=== PATIENT | male | born 1945 | race Caucasian/White ===

== ENCOUNTER 2019-06-15 15:07 | Inpatient (IN) | payer MEDICARE, OTHER ==
[~2019-06-15] VITALS: Ht 188 cm; Wt 102.1 kg
--- NOTE | 2019-06-15 16:28 | Diagnostic Imaging Report ---
EXAMINATION: CXR 1 [facility] INDICATION: ^AMS COMPARISON: None FINDINGS: PA and lateral views TUBES and LINES: None. LUNGS: Low lung volumes. Mild subsegmental atelectasis in both lung bases. No lobar consolidations. PLEURA: No pleural effusion or pneumothorax. HEART AND MEDIASTINUM: The cardiomediastinal silhouette is unremarkable. BONES AND SOFT TISSUES: No acute osseous lesion. Soft tissues are unremarkable. UPPER ABDOMEN: No free air under the diaphragm. IMPRESSION: Bibasilar atelectasis. Signed by: Dr. Rozina Chauhan M.D. on 06/15/2019 4:24 PM
[2019-06-15] MEDS ORDERED: SODIUM CHLORIDE 0.9% 1000ML 1,000 ML IV STA (16:57)
[2019-06-15] MEDS ORDERED: LACTATED RINGER'S 1,000 ML IV SCH (16:57)
[2019-06-15] MEDS ORDERED: ONDANSETRON HCL INJ 2MG/ML 2ML 2 MG/ML VIAL IV PRN (17:00)
[2019-06-15] MEDS ORDERED: INSULIN REGULAR, HUMAN 100 UNIT/1 ML 3ML VIAL IV ONE (17:00)
[2019-06-15] MEDS ORDERED: DEXTROSE 50% SYRINGE 50 ML IV PRN (17:00)
[2019-06-15] MEDS ORDERED: DIPHENHYDRAMINE HCL INJ 50 MG/ML VIAL IV PRN (17:00)
--- NOTE | 2019-06-15 17:00 | NUR ---
after being in the ER for 2 hours pt started coughing and when asked when coughing had started family stated 2 days ago, dr randhawa notifed and pt placed on isolation.
--- NOTE | 2019-06-15 17:07 | Diagnostic Imaging Report ---
History:Fall Comparison studies:None Technique: Axial images were obtained from the skull base to the vertex. Coronal and sagittal images reconstructed from the axial data. Intravenous contrast: None Dose modulation, iterative reconstruction, and/or weight based adjustment of the mA/kV was utilized to reduce the radiation dose to as low as reasonably achievable. Findings: Limited study due to motion artifact Scalp/skull: No abnormalities. Extra-axial spaces: No masses. No fluid collections. Brain sulci: Moderately prominent. Ventricles: Moderately compensatory dilatation. No hydrocephalus. Parenchyma: Scattered hypodensities in the supratentorial white matter are small vessel ischemic changes. No masses, hemorrhage, acute or chronic cortical vascular insults. Sellar/suprasellar region: No abnormalities. Craniocervical junction: Patent foramen magnum. No Chiari one malformation. Incidental findings: Atherosclerotic calcifications in the carotid siphons and vertebral arteries . Impression: Limited study due to motion artifact. No significant acute abnormalities. Chronic findings: 1. Moderate generalized volume loss. 2. Mild supratentorial white matter small vessel ischemic changes. Signed by: DR Kit Dempsey M.D. on 06/15/2019 5:04 PM
[2019-06-15] MEDS ORDERED: CEFTRIAXONE SOD 1 GM VIAL ONE (17:27)
[2019-06-15] MEDS ORDERED: SODIUM CHLORIDE 0.9% 1000ML 1,000 ML ONE ×2 (17:27→18:56)
[2019-06-15] MEDS: FAMOTIDINE 20 MG/2 ML VIAL IV SCH (17:36)
--- OUTSIDE RECORDS SUMMARY | 2019-06-15 17:36 | XMS REPORT ---
Author Author [facility] Address Unknown Phone Unavailable Care Team Providers Care [employer] Name Role Phone Conner PERRIN Unavailable Unavailable Problems This patient has no known problems. Allergies, Adverse Reactions, Alerts This patient has no known allergies or adverse reactions. Medications This patient has no known medications. Results Test Description Test Time Test Comments Text Results Atomic Results Result Comments CT BRAIN WO-HOPD 2019-06-15 16:56:00 [place] [address] Patient Name: FABIÁN ANTHONY MR #: [id number] : 1945 Age/Sex: 74/M Req #: [id number] Adm Physician: Ordered by: JOSE RAMON PERRIN MD Report #: [id number] Location: [facility], [facility] Room/Bed: Procedure: [id number] HOPD/CT BRAIN WO-HOPD Exam Date: 06/15/19 Exam Time: 1622 REPORT STATUS: Signed History:Fall Comparison studies:None Technique: Axial images were obtained from the skull base to the vertex. Coronal and sagittal images reconstructed from the axial data. Intravenous contrast: None Dose modulation, iterative reconstruction, and/or weight based adjustment of the mA/kV was utilized to reduce the radiation dose to as low as reasonably achievable. Findings: Limited study due to motion artifact Scalp/skull: No abnormalities. Extra-axial spaces: No masses. No fluid collections. Brain sulci: Moderately prominent. Ventricles: Moderately compensatory dilatation. No hydrocephalus. Parenchyma: Scattered hypodensities in the supratentorial white matter are small vessel ischemic changes. No masses, hemorrhage, acute or chronic cortical vascular insults. Sellar/suprasellar region: No abnormalities. Craniocervical junction: Patent foramen magnum. No Chiari one malformation. Incidental findings: Atherosclerotic calcifications in the carotid siphons and vertebral arteries . Impression: Limited study due to motion artifact. No significant acute abnormalities. Chronic findings: 1. Moderate generalized volume loss. 2. Mild supratentorial white matter small vessel ischemic changes. Signed by: DR Kit Dempsey M.D. on 06/15/2019 5:04 PM Dictated By: KIT CONTRERAS MD 03 Transcribed By: RENE on 06/15/191703 COPY TO: JOSE RAMON PERRIN MD CXR 1 [facility] 2019-06-15 16:24:00 [place] [address] Patient Name: FABIÁN ANTHONY MR #: [id number] : 1945 Age/Sex: 74/M Req #: [id number] Adm Physician: Ordered by: JOSE RAMON PERRIN MD Report #: [id number] Location: [facility], [facility] Room/Bed: Procedure: [id number] [facility] Ex[facility] Date: 06/15/19 Exam Time: 1622 REPORT STATUS: Signed EXAMINATION: CXR 1 [facility] INDICATION: AMS COMPARISON: None FINDINGS: PA and lateral views TUBES and LINES: None. LUNGS: Low lung volumes. Mild subsegmental atelectasis in both lung bases. No lobar consolidations. PLEURA: No pleural effusion or pneumothorax. HEART AND MEDIASTINUM: The cardiomediastinal silhouette is unremarkable. BONES AND SOFT TISSUES: No acute osseous lesion. Soft tissues are unremarkable. UPPER ABDOMEN: No free air under the diaphragm. IMPRESSION: Bibasilar atelectasis. Signed by: Dr. Edward Nunez M.D. on 06/15/2019 4:24 PM Dictated By: EDWARD NUNEZ MD Transcribed By: RENE on 06/15/197 COPY TO: JOSE RAMON PERRIN MD
[2019-06-15] MEDS: CEFTRIAXONE SOD 1 GM/NS 50 ML 50 ML IV SCH (17:37)
--- NOTE | 2019-06-15 18:32 | NUR ---
[facility] notified of need for transfer eta 45-1 hour
[2019-06-15] MEDS ORDERED: ACETAMINOPHEN 325 MG TAB ONE (18:54)
[2019-06-15] MEDS: ACETAMINOPHEN 325 MG TAB PO PRN (19:00)
[2019-06-15] MEDS ORDERED: SODIUM CHLORIDE 0.9% 1000ML 1,000 ML IV ONE (19:15)
[2019-06-15 20:00] VITALS: BP 138/64
[2019-06-15] MEDS ORDERED: AZITHROMYCIN 250MG/NS 100 ML 100 ML IV SCH ×2 (20:30→21:00)
[2019-06-15 20:45] LABS: BASOPHILS # (AUTO) 0.2 (0.0-0.1); BASOPHILS % 0.5 % (0.0-1.0); EOSINOPHILS # (AUTO) 0.3 (0.0-0.4); HEMATOCRIT 37.8 % (38.2-49.6); HEMOGLOBIN 12.5 g/dL (14.0-18.0); LYMPHOCYTES # (AUTO) 1.1 (1.0-3.2); LYMPHOCYTES % 3.2 % (18.0-39.1); MEAN CORPUSCULAR HEMOGLOBIN 28.3 pg (28-32); MEAN CORPUSCULAR HGB CONC 33.1 g/dL (31-35); MEAN CORPUSCULAR VOLUME 85.7 fL (81-99); MONOCYTES # (AUTO) 0.8 (0.2-0.8); MONOCYTES % 2.5 % (4.4-11.3); NEUTROPHILS # (AUTO) 28.7 (2.1-6.9); NEUTROPHILS % 87.1 % (38.7-80.0); PLATELET COUNT 228 x10e3/uL (140-360); RED BLOOD COUNT 4.41 x10e6/uL (4.3-5.7); RED CELL DISTRIBUTION WIDTH 13.7 % (11.7-14.4)
--- NOTE | 2019-06-15 20:51 | Consultation ---
DATE OF CONSULTATION: Pulmonary Consultation REASON FOR CONSULT: Cough. HISTORY OF PRESENT ILLNESS: Mr. Souza is a 74-year-old male, regular patient of Dr. Santiago, presented to the [facility] ER with complaints of feeling very weak for several days. He refused to come to the hospital because of the fear of COVID-19. He fell couple of times at home as well. Family checked on him and found on the floor, so they brought him in. He is denying any complaints of chest pain. He feels weak. He denies any nausea, vomiting, or diarrhea. He had bruises and abrasions as well. REVIEW OF SYSTEMS: GENERAL: Denies any fever or chills. HEAD: Denies any head trauma. ENT: Denies any earache. CVS: Denies any chest pain. RESPIRATORY: Denies any shortness of breath. The rest of the review of systems are negative except as in HPI. PAST MEDICAL HISTORY: Diabetes and hypertension. FAMILY AND SOCIAL HISTORY: He does not smoke. Does not drink. PHYSICAL EXAMINATION: VITAL SIGNS: Temperature 100.5, pulse of 108, and blood pressure 135/63. HEENT: Head is atraumatic and normocephalic. NECK: Supple. CHEST: Clear to auscultation. No wheezing. HEART: S1 and S2 audible. ABDOMEN: Soft. EXTREMITIES: No pedal edema. NEUROLOGIC: Awake and alert. LABORATORY DATA: They were done at [facility]anding ER and I am unable to find the copies, however, in the note, the white cell count was 29,000 and lactic acid here is 2.2. Chest x-ray showed basilar atelectasis. UA that was done at free-standing per the ER physician showed possibility of UTI. ASSESSMENT: Mr. Souza is a 74-year-old male with sepsis, likely etiology urinary tract infection versus pneumonia, possibility of COVID, history of diabetes and hypertension. 1. Sepsis. 2. Leukocytosis. 3. Urinary tract infection versus pneumonia. 4. Diabetes. 5. History of hypertension. PLAN: 1. The patient has a possibility of COVID-19, hence, COVID-19 will be ruled out. Continue the patient on IV Rocephin. I will add azithromycin as well for possibility of pneumonia. 2. Continue the patient on Lovenox subcutaneous for deep vein thrombosis prophylaxis. 3. IV hydration. 4. Check labs. Follow blood cultures and urine cultures. Thank you for this consult. MD KORTNEY Espinoza/JOSE DAVID /[id number]
[2019-06-15 20:56] LABS: ANION GAP 19.5 mmol/L (8-16); CALCIUM 8.7 mg/dL (8.4-10.2); CREATININE, SERUM 3.15 mg/dL (0.72-1.25); POTASSIUM 4.5 mmol/L (3.5-5.1)
[2019-06-15] MEDS ORDERED: CEFTRIAXONE SOD 1 GM VIAL IV SCH (21:00)
[2019-06-15 21:16] LABS: BAND NEUTROPHILS % (MANUAL) 26 %; LYMPHOCYTES % (MANUAL) 4 % (19-48); MONOCYTES % (MANUAL) 3 % (3.4-9.0); NEUTROPHILS % (MANUAL) 67 % (40-74); PLATELET ESTIMATE ADEQUATE; PLATELET MORPHOLOGY COMMENT NORMAL; RBC MORPHOLOGY COMMENT NORMAL
[2019-06-15] MEDS: LACTATED RINGER'S 1,000 ML IV SCH (21:39)
[2019-06-15] MEDS ORDERED: AZITHROMYCIN 500MG/NS 250 ML 125 ML IV ONE (21:45)
[2019-06-15] MEDS: INSULIN REGULAR, HUMAN 100 UNIT/1 ML 3ML VIAL SQ SCH (21:52)
[2019-06-15 22:24] VITALS: BP 138/64
[2019-06-15 22:36] VITALS: BP 138/64
[2019-06-16] VITALS (7 sets, daily range): BP systolic 145–183; BP diastolic 65–77
[2019-06-16] MEDS: ACETAMINOPHEN 325 MG TAB PO PRN ×3 (00:01→16:40)
[2019-06-16 04:22] LABS: BASOPHILS # (AUTO) 0.1 (0.0-0.1); BASOPHILS % 0.5 % (0.0-1.0); HEMATOCRIT 36.9 % (38.2-49.6); HEMOGLOBIN 11.8 g/dL (14.0-18.0); LYMPHOCYTES # (AUTO) 1.1 (1.0-3.2); LYMPHOCYTES % 4.8 % (18.0-39.1); MEAN CORPUSCULAR HEMOGLOBIN 28.8 pg (28-32); MONOCYTES # (AUTO) 0.6 (0.2-0.8); MONOCYTES % 2.9 % (4.4-11.3); NEUTROPHILS # (AUTO) 20.1 (2.1-6.9); NEUTROPHILS % 90.5 % (38.7-80.0); PLATELET COUNT 151 x10e3/uL (140-360); RED CELL DISTRIBUTION WIDTH 13.7 % (11.7-14.4)
[2019-06-16 04:42] LABS: ANION GAP 16.4 mmol/L (8-16); CALCIUM 8.1 mg/dL (8.4-10.2); CREATININE, SERUM 2.43 mg/dL (0.72-1.25); POTASSIUM 4.4 mmol/L (3.5-5.1)
[2019-06-16] MEDS: LACTATED RINGER'S 1,000 ML IV SCH ×2 (06:00→10:25)
[2019-06-16] MEDS ORDERED: HYDRALAZINE HCL 20 MG/ML VIAL IV PRN (06:15)
--- NOTE | 2019-06-16 06:16 | NUR ---
dr Santiago came and see patient in his room, he is aware lactic acid still 2.2; orders received and carried out.
[2019-06-16] MEDS ORDERED: LISINOPRIL10 MG PO (06:53)
[2019-06-16] MEDS ORDERED: METFORMIN HCL500 MG PO (06:53)
[2019-06-16] MEDS ORDERED: LABETALOL HCL200 MG PO (06:53)
[2019-06-16] MEDS ORDERED: GLIMEPIRIDE2 MG PO (06:53)
--- NOTE | 2019-06-16 07:00 | NUR ---
RECEIVED BEDSIDE REPORT. PT RESTING IN BED, NO S/S OF DISTRESS. CALL LIGHT PLACED WITHIN REACH. BED SAFETY IN PLACE
[2019-06-16] MEDS: FAMOTIDINE 20 MG/2 ML VIAL IV SCH ×2 (08:05→16:40)
[2019-06-16] MEDS: ENOXAPARIN 30 MG/0.3 ML SYR SC SCH (08:05)
[2019-06-16] MEDS: CEFTRIAXONE SOD 1 GM/NS 50 ML 50 ML IV SCH (08:05)
--- NOTE | 2019-06-16 08:12 | NUR ---
JULEE BLOOD FOR LACTIC ACID AT 0800. DROPPED SPECIMEN OFF AT LAB
--- NOTE | 2019-06-16 08:26 | Progress Note ---
DATE: SUBJECTIVE: The patient is a 74-year-old male, who comes in with acute confusion and also hypoglycemia and was found to be septic. HISTORY OF PRESENT ILLNESS: This is Mr. Souza with a medical history of hypertension, hyperlipidemia, and uncontrolled diabetes mellitus, was in his usual state of health until about 4-5 days prior to this admission. The patient family was of reaching out for him, did not hear back from him, went into the house and was found to be on the floor and had frequent falls and the patient was seen by EMS yesterday who told them not to take him to the hospital because of COVID-19 outbreak. However, the patient's son called me yesterday, was found to have increased lethargy, increased tiredness, some fever, bruising, abrasions and the patient also was extremely weak with blood pressures running in the 400 to 500 range, was asked to come to the emergency room. The patient was taken to the outpatient ER and the patient admitted to the hospital for severe sepsis, urinary tract infection, and encephalopathy. PAST MEDICAL HISTORY: History of hypertension, history of hyperlipidemia, history of diabetes mellitus, uncontrolled, last known, his mental status has been normal. MEDICATIONS: Unable to obtain secondary to his lack of mentation. FAMILY HISTORY: Noncontributory. SOCIAL HISTORY: No EtOH. No drug abuse as per nursing staff. REVIEW OF SYSTEMS: Unable to obtain secondary to the patient's medical status. PHYSICAL EXAMINATION: VITAL SIGNS: had a temperature of 100.0, pulse of 116, respirations of 22, blood pressure is 165/73, and pulse oximetry of 93%. The patient is confused. HEENT: Normocephalic and atraumatic. CVS: S1 and S2 tachy. LUNGS: Positive for crackles at the lung bases. ABDOMEN: Tender in the epigastric area, tender in the left lower quadrant and also in the right lower quadrant. No rebound present. NEUROLOGIC: Alert, however, confused. EXTREMITIES: No pedal edema. LABORATORY VALUES: White count is 32,000 yesterday, hemoglobin of 12.5, hematocrit 37.8, and neutrophil count is 87.1. Today's white count is 22,000, hemoglobin of 11.8, and hematocrit of 36.9. Chemistry shows sodium 136, BUN is 70, creatinine is 3.15, eGFR was 19. The lactic acid of 2.2. Serology: COVID-19 is pending. Lactic acid has been trending down to 2.1 and 2.2. Next set is pending. The patient is on IV fluids. ASSESSMENT: Mr. Michael Souza in with. 1. Fever, probably urinary tract infection. 2. Fever with questionable cough and congestion as per family, rule out COVID-19. 3. Leukocytosis and sepsis. Continue with IV antibiotic two sets, Rocephin and azithromycin on board. 4. Uncontrolled diabetes. Insulin sliding scale. 5. History of hypertension. We will give him IV hydralazine as needed. 6. Toxic encephalopathy. Continue to monitor his white count. PLAN: As mentioned above, IV Rocephin, IV Zithromax, IV fluid resuscitation for acute renal failure. Continue with insulin sliding scale. Cultures have been done. Urine cultures and blood cultures are pending and COVID-19 is pending. DVT prophylaxis and GI prophylaxis will be done. Further recommendation per clinical course. We will continue to monitor the patient. We will keep him in the COVID-19 álvarez until ruled out. We will reach out to his family members to see his current medications at home. MD GABRIELA Childers/MODL /[id number]
[2019-06-16] MEDS: INSULIN REGULAR, HUMAN 100 UNIT/1 ML 3ML VIAL SQ SCH ×4 (09:25→20:20)
--- NOTE | 2019-06-16 12:40 | NUR ---
Dr. Platt at the bedside
[2019-06-16] MEDS: ALBUTEROL SULF 0.083% NEB SOLN 3 ML NEB NEB SCH ×3 (13:00→21:16)
--- NOTE | 2019-06-16 14:49 | Diagnostic Imaging Report ---
EXAM: Renal Ultrasound INDICATION: urinary sepsis COMPARISON: None TECHNIQUE: Transverse and longitudinal images of the kidneys and bladder were obtained. FINDINGS: Right Kidney: Length: 13.6 cm Appearance: Normal echogenicity. Collecting system: No hydronephrosis Stones: None Cyst/Mass: None Left Kidney: Length: 15.7 cm Appearance: Normal echogenicity. Collecting system: No hydronephrosis Stones: None Cyst/Mass: None Bladder: Unremarkable. Bilateral ureteral jets are present. IMPRESSION: Unremarkable exam. Signed by: Dr. Hugo Russell MD on 06/16/2019 2:45 PM
--- NOTE | 2019-06-16 16:07 | Consultation ---
DATE OF CONSULTATION: REASON FOR CONSULTATION: Shortness of breath. HISTORY OF PRESENT ILLNESS: Mr. Souza who is a 74-year-old white male, patient of Dr. Santiago, comes into the emergency room weakness, not feeling well. The patient has been sick for some time, but he refused to go to the emergency room because he was afraid of COVID-19, however he fell couple of times at the house. He had an injury to his head. Family finally convinced him to come to the emergency room, where he was admitted. The patient is currently lying in bed comfortably. He is feeling better. He has no fever, no chills. No cough. But since we are admitted COVID-19, he is being admitted. LABORATORY DATA: When he first came, white count was 32, hemoglobin 12.5. Sodium 136, potassium 4.5. Lactic acid 2.2. MEDICATION LIST: He is on: 1. Insulin. 2. Tylenol. 3. Lovenox. 4. Ceftriaxone. 5. Azithromycin. His chest x-ray showed atelectasis. PHYSICAL EXAMINATION: GENERAL: He is currently alert, oriented, does not seem to be in acute distress. VITAL SIGNS: Stable, currently afebrile. HEENT: He is not icteric. NECK: Supple. CHEST: Clear. HEART: S1, S2. No S3, S4, or murmur. ABDOMEN: Soft. Bowel sounds present. No tenderness. EXTREMITIES: No edema. SKIN: No rash. IMPRESSION: 1. Sepsis, present on admission secondary to pyelonephritis urinary tract infection and we will put him on cefepime 1 g q.8, discontinue Rocephin. Discontinue azithromycin. Doubt he has COVID-19, and should the test came back negative to be transferred to a regular floor. Continue with IV fluids. Continue supportive care. 2. The patient does have history of chronic back pain with osteoarthritis. 3. We will follow. MD JOSHUA Gauthier/JOSE DAVID /[id number]
[2019-06-16] MEDS: LABETALOL HCL 200 MG TAB PO SCH (16:30)
--- NOTE | 2019-06-16 18:01 | NUR ---
temp is 103.4 degrees. gave tylenol at 1640 next dose due @ 10:40pm. placed ice packs under each arm close to the torso.
[2019-06-16] MEDS ORDERED: LACTATED RINGER'S 1,000 ML IV SCH (19:30)
--- NOTE | 2019-06-16 20:15 | Diagnostic Imaging Report ---
EXAM: CT Abdomen and Pelvis WITHOUT contrast INDICATION: ^abdominal pain abdomen pevlis uti ^[id number] ^1911 ^Y COMPARISON: Same day renal ultrasound. TECHNIQUE: Abdomen and pelvis were scanned utilizing a multidetector helical scanner from the lung base to the pubic symphysis without administration of IV contrast. Absence of intravenous contrast decreases sensitivity for detection of focal lesions and vascular pathology. Coronal and sagittal reformations were obtained. Routine protocol was performed. IV CONTRAST: None ORAL CONTRAST: None COMPLICATIONS: None RADIATION DOSE: Total DLP: 863.93 mGy*cm Estimated effective dose: (DLP x 0.015 x size factor) mSv CTDIvol has been reviewed. It is below the limits set by the Radiation Protocol Committee (RPC). FINDINGS: LINES and TUBES: None. LOWER THORAX: Respiratory motion limits evaluation. Bilateral dependent atelectasis. Right basilar linear atelectasis/scarring. Mild atherosclerotic calcification of coronary arteries. HEPATOBILIARY: Unenhanced liver is unremarkable. No biliary ductal dilation. GALLBLADDER: No radio-opaque stones or sludge. No wall thickening. SPLEEN: No splenomegaly. PANCREAS: No focal masses or ductal dilatation. ADRENALS: No adrenal nodules KIDNEYS/URETERS: No hydronephrosis. Limited for evaluation of renal parenchyma without intravenous contrast. Partially septated right superior pole 2.7 cm hypodensity with internal density is slightly greater simple fluid. Punctate right superior pole calculus. Nonspecific bilateral perinephric fat stranding, left greater than right. GI TRACT: No abnormal distention, wall thickening, or evidence of bowel obstruction. Appendix is normal. PELVIC ORGANS/BLADDER: 0.8 cm dependent calculus within bladder. LYMPH NODES: No lymphadenopathy. VESSELS: There is mild atherosclerotic disease in the aorta and major arterial branches. PERITONEUM / RETROPERITONEUM: No free air or fluid. BONES: Multilevel advanced degenerative changes of the thoracolumbar spine, most severe at L3-L4 and L4-L5. L3 vertebral body sclerotic focus, likely a bone island. SOFT TISSUES: Minimal left lower abdominal wall subcutaneous emphysema. IMPRESSION: 1. Limited study without intravenous contrast. 2. Asymmetrically increased left perinephric fat stranding, could represent pyelonephritis or could be related to a recently passed stone, considering presence of 0.8 cm bladder calculus. 3. 2.7 cm right renal superior pole exophytic hypodensity is probably a mildly complex cyst. It cannot be fully characterized without intravenous contrast. 4. Punctate right renal nonobstructive calculus. Signed by: Dr. Sushil Law MD on 06/16/2019 8:12 PM
[2019-06-16] MEDS ORDERED: AZITHROMYCIN 250MG/NS 100 ML 100 ML IV SCH (21:00)
[2019-06-16] MEDS: CEFEPIME 1GM/NS 0.9% 50 ML 50 ML IV SCH (21:18)
[2019-06-16] MEDS ORDERED: CEFEPIME HCL 1 GM VIAL IV SCH (22:00)
[2019-06-17] VITALS (8 sets, daily range): BP systolic 125–170; BP diastolic 60–89
[2019-06-17] MEDS: ACETAMINOPHEN 325 MG TAB PO PRN (00:53)
[2019-06-17 05:02] LABS: BASOPHILS # (AUTO) 0.1 (0.0-0.1); BASOPHILS % 0.5 % (0.0-1.0); EOSINOPHILS % 0.4 % (0.0-6.0); HEMATOCRIT 35.4 % (38.2-49.6); HEMOGLOBIN 11.5 g/dL (14.0-18.0); LYMPHOCYTES % 10.3 % (18.0-39.1); MEAN CORPUSCULAR HEMOGLOBIN 28.3 pg (28-32); MEAN CORPUSCULAR HGB CONC 32.5 g/dL (31-35); MONOCYTES # (AUTO) 0.6 (0.2-0.8); MONOCYTES % 5.5 % (4.4-11.3); NEUTROPHILS # (AUTO) 8.1 (2.1-6.9); NEUTROPHILS % 81.9 % (38.7-80.0); PLATELET COUNT 178 x10e3/uL (140-360); RED BLOOD COUNT 4.07 x10e6/uL (4.3-5.7); RED CELL DISTRIBUTION WIDTH 14.1 % (11.7-14.4)
[2019-06-17 05:29] LABS: ALBUMIN 1.8 g/dL (3.5-5.0); ALBUMIN/GLOBULIN RATIO 0.5 (0.8-2.0); ANION GAP 15.2 mmol/L (8-16); CALCIUM 8.6 mg/dL (8.4-10.2); CREATININE, SERUM 1.89 mg/dL (0.72-1.25); POTASSIUM 4.2 mmol/L (3.5-5.1)
[2019-06-17] MEDS ORDERED: ALBUTEROL SULF 0.083% NEB SOLN 3 ML NEB NEB SCH (06:00)
[2019-06-17] MEDS: CEFEPIME 1GM/NS 0.9% 50 ML 50 ML IV SCH ×2 (06:10→15:00)
[2019-06-17] MEDS: INSULIN REGULAR, HUMAN 100 UNIT/1 ML 3ML VIAL SQ SCH ×4 (07:30→21:00)
[2019-06-17] MEDS: LISINOPRIL 20 MG TAB PO SCH (08:08)
[2019-06-17] MEDS: ENOXAPARIN 30 MG/0.3 ML SYR SC SCH (08:25)
[2019-06-17] MEDS: FAMOTIDINE 20 MG/2 ML VIAL IV SCH ×2 (08:25→16:45)
[2019-06-17] MEDS: LABETALOL HCL 200 MG TAB PO SCH ×2 (08:25→16:56)
--- NOTE | 2019-06-17 10:16 | NUR ---
Telephonic visit. Pt. expressed no spiritual or emotional concerns at this time. Provided hospitality and information on how to reach design technology professor, if needed. KEISHA MORAN [facility] O: [phone]
--- NOTE | 2019-06-17 10:24 | Diagnostic Imaging Report ---
EXAMINATION: CHEST SINGLE (PORTABLE) INDICATION: Cough COMPARISON: CT abdomen and pelvis of 06/16/2019, chest radiograph 06/15/2019 FINDINGS: LINES/TUBES:None LUNGS:The lungs are moderately inflated. Bibasilar subsegmental atelectasis. No focal pneumonia or pulmonary edema. PLEURA:No pleural effusion or pneumothorax. MEDIASTINUM:The cardiomediastinal silhouette appears normal in size and shape. BONES/SOFT TISSUES:No acute osseous injury. ABDOMEN:No free air under the diaphragm. IMPRESSION: Bibasilar subsegmental atelectasis. No focal pneumonia or pulmonary edema. Signed by: Wilfredo Chun MD on 06/17/2019 10:20 AM
--- NOTE | 2019-06-17 10:43 | NUR ---
Orders received for PT ese. Discussed with CNO. PT will see patient when COVID negative test is received back (hopefully tomorrow or later today) and patient is moved to a regular room. Thank you for the consult. Addendum: 06/17/19 at 1045 by Afsaneh Almonte PT Amended: Links added.
[2019-06-17] MEDS: ALBUTEROL SULFATE HFA 8GM INHALATION AEROSOL INH SCH ×4 (12:11→23:00)
--- NOTE | 2019-06-17 12:44 | NUR ---
DR. BONILLA PAGED AT 1092 TO NOTIFY OF ESBL IN URINE VS ORDERED MAXIPIME. AWAITING RETURN CALL.
--- NOTE | 2019-06-17 18:37 | Progress Note ---
DATE: SUBJECTIVE: Mr. Souza is feeling much better today. He is more alert. Blood cultures came back gram-negative rods. Urine culture showing E coli, which was pansensitive. REVIEW OF SYSTEMS: HEENT: Negative. PULMONARY: Negative. CARDIAC: Negative. PHYSICAL EXAMINATION: GENERAL: He is currently alert, oriented, does not seem to be in acute distress. VITAL SIGNS: Stable, currently afebrile. HEENT: Not icteric. NECK: Supple. CHEST: Clear. HEART: S1, S2. No S3, S4, or murmur. ABDOMEN: Soft. Bowel sounds present. No tenderness. EXTREMITIES: No edema. SKIN: No rash. IMPRESSION: Sepsis on admission, pyelonephritis, urinary tract infection, getting better. WBC came down to 9.4. He has had chronic kidney disease. Continue with cefepime, we will adjust for his kidney function. Discussed with the patient and discussed with medical team. If his COVID-19 came back negative, could be discontinue the of droplet isolation since we have his clinical picture that is not consistent with it. MD JOSHUA Gauthier/JOSE DAVID /[id number]
[2019-06-18] VITALS (11 sets, daily range): BP systolic 134–150; BP diastolic 63–83
[2019-06-18] MEDS: CEFEPIME 1GM/NS 0.9% 50 ML 50 ML IV SCH ×2 (02:00→15:04)
[2019-06-18] MEDS: ALBUTEROL SULFATE HFA 8GM INHALATION AEROSOL INH SCH ×5 (05:26→20:00)
[2019-06-18] MEDS: INSULIN REGULAR, HUMAN 100 UNIT/1 ML 3ML VIAL SQ SCH ×4 (08:00→21:14)
[2019-06-18] MEDS: ENOXAPARIN 30 MG/0.3 ML SYR SC SCH (08:01)
[2019-06-18] MEDS: FAMOTIDINE 20 MG/2 ML VIAL IV SCH ×2 (08:01→17:05)
[2019-06-18] MEDS: LABETALOL HCL 200 MG TAB PO SCH (08:47)
[2019-06-18] MEDS: LISINOPRIL 20 MG TAB PO SCH (08:47)
[2019-06-18] MEDS: LABETALOL HCL 100 MG TAB PO SCH (17:05)
--- NOTE | 2019-06-18 17:26 | Progress Note ---
DATE: SUBJECTIVE: Mr. Souza is doing much better. REVIEW OF SYSTEMS: HEENT: Negative. PULMONARY: Negative. CARDIAC: Negative. Blood cultures showing E coli. Sensitivity pattern is pansensitive. PHYSICAL EXAMINATION: GENERAL: He is currently alert, oriented, does not seem acute distress. VITAL SIGNS: Stable, afebrile. HEENT: Not icteric. NECK: Supple. CHEST: Clear. COR: S1, S2. No S3, S4, or murmur. ABDOMEN: Soft. IMPRESSION: Sepsis on admission, Escherichia coli bacteremia with urinary tract infection, currently on cefepime. Can change to Ancef 1 g q.12. Recheck blood cultures. If COVID-19 came back negative, can discontinue droplet isolation. MD JOSHUA Gauthier/JOSE DAVID /[id number]
--- NOTE | 2019-06-18 19:25 | NUR ---
REPORT RECEIVED BY ONCOMING NURSE. NO DISTRESS NOTED.
--- NOTE | 2019-06-18 20:07 | NUR ---
CALLED DR BONILLA TO NOTIFY PT COVID TEST NEGATIVE AND STATES TO MOVE PT TO THE FLOOR WITHOUT ISOLATION. NOTIFIED AUTOMOBILE RELOCATION ENGINEER JESSIKA
[2019-06-19] VITALS (12 sets, daily range): BP systolic 119–165; BP diastolic 55–88
[2019-06-19] MEDS: ALBUTEROL SULFATE HFA 8GM INHALATION AEROSOL INH SCH ×7 (00:01→23:00)
[2019-06-19] MEDS: CEFEPIME 1GM/NS 0.9% 50 ML 50 ML IV SCH ×2 (00:54→14:00)
--- NOTE | 2019-06-19 07:10 | NUR ---
RCD PT AT BED PT IS ALERT AND ORIENTED PT RESTING ON BED NO SIGNS OF ANY DISTRESS NOTED IV PATENT BY SALINE FLUSH BED LOW AND LOCKED CALL LIGHT IN REACH
[2019-06-19] MEDS: INSULIN REGULAR, HUMAN 100 UNIT/1 ML 3ML VIAL SQ SCH ×4 (07:30→21:35)
[2019-06-19] MEDS: ENOXAPARIN 30 MG/0.3 ML SYR SC SCH (09:00)
[2019-06-19] MEDS: FAMOTIDINE 20 MG/2 ML VIAL IV SCH ×2 (09:00→16:33)
[2019-06-19] MEDS: LISINOPRIL 20 MG TAB PO SCH (09:00)
[2019-06-19] MEDS: LABETALOL HCL 100 MG TAB PO SCH ×2 (09:00→16:33)
--- NOTE | 2019-06-19 14:00 | NUR ---
AC TO THE PT TALKED TO FAMILY DAUGHTER SHERRIE SHE CANNOT TAKE CARE AT HOME THEY REQUESTED THE REHAB NOTIFIED THE DEBEAKER
[2019-06-19] MEDS ORDERED: SODIUM CHLORIDE 0.9% 250ML 250 ML ONE (14:31)
--- NOTE | 2019-06-19 19:00 | NUR ---
Received the patient in report.lyeing in the bed .stable condition.
--- NOTE | 2019-06-19 19:07 | NUR ---
PT RESTING ON BED BED SIDE REPORT GIVEN TO ONCOMING NURSE
[2019-06-19] MEDS ORDERED: ONDANSETRON HCL 4 MG ORAL DISINTEGRATING TAB PO PRN (20:00)
[2019-06-20] VITALS (8 sets, daily range): BP systolic 112–152; BP diastolic 66–86
--- NOTE | 2019-06-20 00:14 | NUR ---
Repositioned.diaper changed.Assessment done.no resp.distress.voided.alert.bd alarm on.bed locked and in lowest position.phone and call light within reach.instructed to call for assistance as needed.
[2019-06-20] MEDS: CEFEPIME 1GM/NS 0.9% 50 ML 50 ML IV SCH ×2 (01:44→16:42)
[2019-06-20] MEDS: ALBUTEROL SULFATE HFA 8GM INHALATION AEROSOL INH SCH ×6 (03:00→23:00)
--- NOTE | 2019-06-20 06:00 | NUR ---
PATIENT DID NOT COLLECTED SPUTUM.SPECIMEN CONTAINER WITH PATIENT.
[2019-06-20 06:11] LABS: BASOPHILS # (AUTO) 0.1 (0.0-0.1); BASOPHILS % 0.7 % (0.0-1.0); EOSINOPHILS # (AUTO) 0.2 (0.0-0.4); EOSINOPHILS % 3.1 % (0.0-6.0); HEMATOCRIT 34.1 % (38.2-49.6); HEMOGLOBIN 10.8 g/dL (14.0-18.0); MEAN CORPUSCULAR HEMOGLOBIN 28.1 pg (28-32); MEAN CORPUSCULAR HGB CONC 31.7 g/dL (31-35); MEAN CORPUSCULAR VOLUME 88.6 fL (81-99); MONOCYTES # (AUTO) 0.7 (0.2-0.8); MONOCYTES % 9.4 % (4.4-11.3); NEUTROPHILS # (AUTO) 4.2 (2.1-6.9); NEUTROPHILS % 55.2 % (38.7-80.0); PLATELET COUNT 266 x10e3/uL (140-360); RED BLOOD COUNT 3.85 x10e6/uL (4.3-5.7); RED CELL DISTRIBUTION WIDTH 13.5 % (11.7-14.4)
[2019-06-20 06:30] LABS: ALBUMIN 1.9 g/dL (3.5-5.0); ALBUMIN/GLOBULIN RATIO 0.5 (0.8-2.0); ANION GAP 10.5 mmol/L (8-16); CALCIUM 8.9 mg/dL (8.4-10.2); CREATININE, SERUM 1.47 mg/dL (0.72-1.25); MAGNESIUM 1.4 MG/DL (1.3-2.1); POTASSIUM 4.5 mmol/L (3.5-5.1)
--- NOTE | 2019-06-20 07:10 | NUR ---
Bed side shift report given to oncoming rn.stable condition.
[2019-06-20] MEDS: LISINOPRIL 20 MG TAB PO SCH (08:30)
[2019-06-20] MEDS: FAMOTIDINE 20 MG/2 ML VIAL IV SCH ×2 (08:30→16:42)
[2019-06-20] MEDS: INSULIN REGULAR, HUMAN 100 UNIT/1 ML 3ML VIAL SQ SCH ×4 (08:30→21:45)
[2019-06-20] MEDS: ENOXAPARIN 30 MG/0.3 ML SYR SC SCH (08:31)
[2019-06-20] MEDS: LABETALOL HCL 100 MG TAB PO SCH ×2 (08:31→16:42)
[2019-06-20 10:12] LABS: EOSINOPHILS % (MANUAL) 3 % (0-7); LYMPHOCYTES % (MANUAL) 26 % (19-48); MONOCYTES % (MANUAL) 9 % (3.4-9.0); MYELOCYTES % (MANUAL) 3 % (0-0); NEUTROPHILS % (MANUAL) 58 % (40-74); PLATELET ESTIMATE ADEQUATE; PLATELET MORPHOLOGY COMMENT NORMAL; RBC MORPHOLOGY COMMENT NORMAL
--- NOTE | 2019-06-20 10:57 | Progress Note ---
DATE: SUBJECTIVE: Mr. Harley kurtz is a 74-year-old gentleman, currently comfortable in bed, in no acute distress, wants to go home and I told him that I left him the prescription in the chart. He said he might get at it or he may not get it. However, in no acute distress. Alert and oriented. ALLERGIES: NO KNOWN ALLERGIES. OBJECTIVE: VITAL SIGNS: Temperature 98.7, pulse 85, respirations 18, and blood pressure 152/73. GENERAL: Comfortable in chair, in no acute distress. CV: S1 and S2. CHEST: Equal expansion, clear to auscultation. No acute distress. ABDOMEN: Soft, nontender, obese. HEENT: Moist. No pallor. No JVD. EXTREMITIES: Weak with very poor balance that requires 2 people to transfer from bed to chair. MEDICATION LIST: Reviewed. As far as Infectious Disease point of view, the patient is on cefepime. LABORATORY STUDIES: White blood cells 7.62, improved from 32.94; hemoglobin 10.8; and platelet 266, improved from 178. Creatinine is 1.47, improving from 3.15. MICORBIOLOGY: Blood culture was E coli with recheck pending on 06/19/2019. Urine culture also E coli. RADIOLOGY STUDIES: No new radiology studies available. ASSESSMENT AND PLAN: 1. Sepsis on admission. 2. Escherichia coli bacteremia-followup blood cultures pending. 3. Urinary tract infection with Escherichia coli. 4. PVD noted. The patient is severely debilitated. Family is requesting inpatient rehab. Inpatient rehab is consulted by attending; however, prescription is in the chart in case if the patient refuses inpatient rehab. Prescriptions in chart for Keflex 500 mg p.o. q.12 hours, #28. Dictated by Joseluis Mobley PA-C (Al) Carolyn Molina MD /VICL /[id number]
--- NOTE | 2019-06-20 19:05 | Consultation ---
DATE OF CONSULTATION: 06/20/2019 REASON FOR CONSULTATION: Debilitation secondary to sepsis. HISTORY: A 74-year-old male came in to the hospital, not been feeling well, who had been sick for sometime. Did not come to the ER because of COVID-19 fears, but he fell down a couple of times. Family found him at home and brought him to the emergency room. Came in, underwent COVID evaluation, was ruled out for COVID, but ruled in for sepsis. He has been on antibiotics. He has been weak and debilitated and being asked to evaluate for rehab needs. PAST MEDICAL HISTORY: Includes diabetes and hypertension. SOCIAL HISTORY: Lives by himself in a one-story home. He walked just fine before all this happened. REVIEW OF SYSTEMS: GENERAL: Denies any fever, chills. HEAD: Denies any head trauma. EYES: Denies. EARS: Denies. ORAL: Denies. CARDIAC: He denies any chest pain. RESPIRATORY: No shortness of breath. FAMILY HISTORY: Negative. HABITS: Nonsmoker and nondrinker. LABORATORY STUDIES: White cell count of 7.6, hemoglobin 10.8, hematocrit 34.1, platelets of 266. Sodium is 138, potassium 4.5, BUN of 37, creatinine 1.7. Chest x-ray from the other day, bibasilar subsegmental atelectasis. Review of therapy notes shows that he walks assist to contact guard assist. PHYSICAL EXAMINATION: GENERAL: Awake, alert, oriented, sleepy, but . EYES: Gaze conjugate. NECK: Supple. HEART: Regular. LUNGS: Diminished breath sounds. ABDOMEN: Nontender and nondistended. EXTREMITIES: Actually very strong, 5/5 strength of arms and legs. I thought I noted a little bit of weakness in the right upper extremity range of motion of arms and legs. IMPRESSION: 1. Debilitation secondary to sepsis. 2. Hypertension. PLAN: He would like to come in inpatient rehab to work on building up strength and endurance, although he is strong, he is walking to 220. He also is not at modified independent as he was before ability to be with therapy. We will check with insurance to see if they allow him for rehab. Thank you once again for allowing me to participate in the care of this very interesting patient. Tom Dc DO [facility]/JOSE DAVID /[id number]
--- NOTE | 2019-06-20 19:10 | NUR ---
Received the patient in report.allert .bed locked and in lowest position .patient denied needs.
[2019-06-21] VITALS (7 sets, daily range): BP systolic 123–167; BP diastolic 63–77
[2019-06-21] MEDS: ALBUTEROL SULFATE HFA 8GM INHALATION AEROSOL INH SCH ×6 (03:00→20:15)
[2019-06-21] MEDS: CEFEPIME 1GM/NS 0.9% 50 ML 50 ML IV SCH ×2 (04:33→14:53)
--- NOTE | 2019-06-21 07:00 | NUR ---
Bed side shift report given to oncoming Rn.stable condition.
--- NOTE | 2019-06-21 08:00 | NUR ---
PT ASSESSED IN BED. NO COMPLAINTS OF PAIN. DECREASED BREATH SOUNDS TO BILATERAL LOWER LUNGS. IV TO RUE SALINE LOCK C/D/I. FLUSHES WITH OUT DIFFICULTY. PATIENT REFUSES TO ALLOW ME TO PLACE ID BAND OR FALL PRECAUTION BAND ON HIM. SEE CHART FOR ASSESSMENT.
[2019-06-21] MEDS: INSULIN REGULAR, HUMAN 100 UNIT/1 ML 3ML VIAL SQ SCH ×4 (08:02→21:00)
[2019-06-21] MEDS: FAMOTIDINE 20 MG/2 ML VIAL IV SCH ×2 (08:09→16:42)
[2019-06-21] MEDS: LABETALOL HCL 100 MG TAB PO SCH ×2 (08:10→16:43)
[2019-06-21] MEDS: ENOXAPARIN 30 MG/0.3 ML SYR SC SCH (08:10)
[2019-06-21] MEDS: LISINOPRIL 20 MG TAB PO SCH (08:10)
--- NOTE | 2019-06-21 09:26 | Progress Note ---
DATE: SUBJECTIVE: Mr. Souza is seen with the nurse in his room, no new complaints. No nausea, vomiting, fever, chills, chest pain, shortness of breath, dysuria, or rash. MEDICATIONS: Medication reviewed as far as Infectious Disease point of view the patient is on cefepime. LABORATORIES: White counts 7.62, hemoglobin 10.8, platelet 266,000. Creatinine 1.47 improving from 3.15. Microbiology, blood culture 06/19/2019 is negative 24 hours. RADIOLOGY STUDIES: No new Radiology studies available. PHYSICAL EXAMINATION: VITAL SIGNS: Temperature 98.1, pulse is 85, respiration 18, and blood pressure 152/70. GENERAL: Alert and oriented, sitting on the edge of the bed and eating breakfast. Appetite is good. CV: S1 and S2. CHEST: Equal expansion. Clear to auscultation. No acute distress. ABDOMEN: Soft and nontender. No distention. HEENT: There is no pain. No JVD. EXTREMITIES: Weak, but moves all. No edema. ASSESSMENT AND PLAN: 1. This is a 74-year-old gentleman admitted with sepsis. 2. E coli bacteremia with a recheck blood culture from 06/20/2019 is negative. 3. UTI with E coli. 4. PVD. 5. Debility. 6. Acute kidney injury, which has improved significantly. 7. Hypertension. 8. Diabetes. 9. The patient remains on cefepime, continue with cefepime. At this point the patient is being evaluated for rehab and he is telling me that he might go to inpatient rehab. We will continue to monitor the patient clinically and follow up with the labs. Please refer to the chart for more information. Discussed with Dr. Molina in details. MD JOSHUA Gauthier/JOSE DAVID /[id number]
--- NOTE | 2019-06-21 11:45 | NUR ---
PT SITTING IN CHAIR. REMINDED TO CALL FOR ASSISTANCE. STATES HE WILL GET UP AND WALK IF HE WANTS TO, HE DOESN'T NEED ASSISTANCE. CALL LIGHT WITH IN REACH. AGAIN REMINDED TO CALL.
--- NOTE | 2019-06-21 13:29 | NUR ---
PATIENT SITTING IN CHAIR. REMINDED TO CALL FOR ASSISTANCE.
--- NOTE | 2019-06-21 15:35 | NUR ---
ORDERS FOR [facility] RE[facility] EVAL CM SPOKE WITH PT FOR CHOICE LETTER SIGNATURE PT BECAME ANGRY STATING, "YA'LL ARE TRYING TO HOLD ME HOSTAGE, I AM GOING HOME" ROPE TOW OPERATOR CALLED AND SPOKE WITH SON THAO ANTHONY ON SPEAKER PHONE IN PT'S ROOM PH: [phone] THAO TRIED TO TALK TO PT ABOUT CONSENTING TO REHAB PT BECAME ANGRY AND THREATENED TO TAKE SON OUT OF HIS WILL IF HE FORCES HIM TO GO HOME PT ASKED ME IF I WAS A BRAZILIAN; I ASKED HIM WHY HE WOULD ASK ME THAT AND HE RESPONDED "BECAUSE WE'RE IN [place]" I TOLD PT WE ARE IN [place] AND HE LAUGHED AND STATED, "THAT'S EVEN WORSE" SON REQUESTING THAT WE GET CONSULT WITH PSYCH FOR COMPETENCY CM CALLED DR COX AND GOT PSYCH EVAL ORDERED FOR COMPETENCY
--- NOTE | 2019-06-21 15:46 | NUR ---
Nutrition Screen Note RD Recommendation for Physician: -Recommend diabetic diet Plan of Care: RD following, monitoring for tolerance and adequacy Nutrition reason for involvement: Length of stay Primary Diagnose(s): acute renal failure, dehydration, gram negative sepsis, UTI, and weakness PMH: diabetes, HTN Ht: 74 in Wt: 225 lb BMI: 28.9 kg/m2 IBW: [address] Assessment: (06/20) Chart reviewed. Labs and meds reviewed. Pt is a 74 year old male admitted with acute renal failure, dehydration, gram negative sepsis, UTI, and weakness. Pt reports a good appetite and is eating all of his meals. Pt was unsure of any recent weight changes and mentioned he usually weighs 225 lbs. No N/V or chewing/swallowing issues reported. Will continue to monitor unless consulted sooner. Current Diet: Renal/diabetic diet Malnutrition Evaluation (06/20) The patient does not meet criteria for a specified degree of malnutrition at this time. Will re-evaluate at follow-up as appropriate. Diet Education Needs Assessment: Pt declined diet education materials Nutrition Care Level: low Signed: Mickie Bender, RD, LD
--- NOTE | 2019-06-21 20:48 | NUR ---
Received report from nurse. Walking rounds completed.
[2019-06-22] VITALS: BP 148/69
[2019-06-22] MEDS: CEFEPIME 1GM/NS 0.9% 50 ML 50 ML IV SCH (02:00)
[2019-06-22] MEDS: ALBUTEROL SULFATE HFA 8GM INHALATION AEROSOL INH SCH ×2 (03:00→08:34)
[2019-06-22 04:00] VITALS: BP 136/70
--- NOTE | 2019-06-22 07:00 | NUR ---
BEDSIDE SHIFT REPORT FROM LOCATION MAN NURSE. PT DENIES NEEDS AT THIS TIME.
--- NOTE | 2019-06-22 07:15 | NUR ---
MET W/ PATIENT AND DISCUSSED DC PLANS. STATED HE IS GOING HOME TODAY, AND DOES NOT NEED ANYTHING. STATED HE HAS FAMILY THAT WILL ASSIST HIM IF NEEDED. EDUCATED ON IMM LETTER, AND HE SIGNED IT. COPY TO TRANSITION FOLDER, AND ORIGINAL PLACED IN CHART. DC PLAN: DC HOME TODAY W/O NEEDS.
[2019-06-22 08:19] VITALS: BP 136/70
[2019-06-22 08:26] VITALS: BP 128/64
[2019-06-22] MEDS: LISINOPRIL 20 MG TAB PO SCH (08:28)
[2019-06-22] MEDS: FAMOTIDINE 20 MG/2 ML VIAL IV SCH (08:28)
[2019-06-22] MEDS: LABETALOL HCL 100 MG TAB PO SCH (08:28)
[2019-06-22] MEDS: INSULIN REGULAR, HUMAN 100 UNIT/1 ML 3ML VIAL SQ SCH (08:29)
[2019-06-22] MEDS: ENOXAPARIN 30 MG/0.3 ML SYR SC SCH (08:29)
[2019-06-22] MEDS ORDERED: KEFLEX500 MG (10:19)
--- NOTE | 2019-06-24 05:52 | Discharge Summary ---
DISCHARGE DIAGNOSES: 1. Sepsis, secondary to urinary tract infection with Escherichia coli. 2. Encephalopathy, secondary to sepsis. HISTORY OF PRESENT ILLNESS AND HOSPITAL COURSE: The patient is a gentleman, who presented with encephalopathic changes, weakness, was found to have fever, ruled up for COVID-19 and was found to have positive blood cultures and urine cultures for E. coli, secondary to urinary tract infection. The patient had significant improvement of his sepsis; of course, the patient had some encephalopathic changes with his, resolved by the time of discharge. The patient started becoming very upset belligerently because he wanted to go home. Family was concerned about his overall weakness. Discussed with the patient about possibly doing rehab, which he initially agreed to, but then for the rehab doctor came by and evaluated the patient. He became belligerent and saying I am going to go home and the patient was confident to make his own decisions. I had a discussion with the family on multiple occasions. The patient is not willing to do rehab and since we cannot hold him against his wishes. He was medically cleared, so agreeable to discharge to home with p.oDavid Levaquin and follow up in 1 week. Agreed to take the medication for 10 days. Please see hospital chart for full details. MD MARIALUISA Becerril/JOSE DAVID /[id number]
--- NOTE | 2019-06-24 12:22 | Progress Note ---
DATE: SUBJECTIVE: Mr. Souza is a 74-year-old gentleman, currently sitting in a chair, alert and oriented, and he is upset. He wants to Dr. Morales and his son, basically no medical complaints. No nausea, vomiting, fever, chills, chest pain, shortness of breath, diarrhea, rash, or sweats. PHYSICAL EXAMINATION: VITAL SIGNS: Temperature is 97.3, pulse 78, respirations 20, blood pressure 165/78. GENERAL: Alert and oriented, sitting in nature, in no acute distress. CV: S1 and S2. CHEST: Equal expansion, clear to auscultation. No acute distress. ABDOMEN: Soft and nontender. No distention. HEENT: Moist. No pallor. No JVD. EXTREMITIES: Weak in general. MEDICATIONS: Medication list reviewed. As far as Infectious Disease point of view, the patient is on cefepime. ALLERGIES: NO KNOWN ALLERGIES. LABORATORY STUDIES: White blood cells 9.94, improving from 32.94; hemoglobin 11.5; and platelets 178. Creatinine 1.89, improved from 3.15. MICROBIOLOGY: Urine and blood cultures E coli, pansensitive. RADIOLOGY STUDIES: No new radiology studies available. Chest x-ray on 16 of June showed bibasilar subsegmental atelectasis. No focal pneumonia or pulmonary edema. SEROLOGY: COVID-19 was not detected. ASSESSMENT AND PLAN: 1. Sepsis on admission. 2. Escherichia coli bacteremia. 3. Escherichia coli urinary tract infection. 4. Hypertension. 5. Debility. 6. Agitated this morning. Continue antibiotics. At this point, the patient wants to go home. Please refer to the chart for more information. We will recheck blood culture. Dictated by Joseluis Mobley PA-C (Al) Carolyn Molina MD /VICL /[id number]
== END 2019-06-22 10:37 | disposition home or self-care (01) | DRG 871 ==
LOC: FSED 15:07 → EDSEX 15:07 → ERHOLD 16:57 → IMCU 19:54 → MED/SURG2 06-18 20:34
PROVIDERS: ADMIT Internal Medicine; ATTEND Internal Medicine
DX: A41.51 Sepsis due to Escherichia coli [E. coli] (principal); G93.41 Metabolic encephalopathy; N39.0 Urinary tract infection, site not specified; N12 Tubulo-interstitial nephritis, not specified as acute or chronic; N17.9 Acute kidney failure, unspecified; R65.20 Severe sepsis without septic shock; E78.5 Hyperlipidemia, unspecified; E11.51 Type 2 diabetes mellitus with diabetic peripheral angiopathy without gangrene; Z79.4 Long term (current) use of insulin; I12.9 Hypertensive chronic kidney disease with stage 1 through stage 4 chronic kidney disease, or unspecified chronic kidney disease; E11.22 Type 2 diabetes mellitus with diabetic chronic kidney disease; N18.3 Chronic kidney disease, stage 3 (moderate)
CPT/HCPCS: 36415; 70450; 71045; 74176; 76770; 80048; 80053; 81003; 82553; 82948; 83605; 83735; 83880; 84484; 85025; 85610; 87040; 87071; 87086; 87186; 87205; 87400; 87635; 93005; 94664; 96374; 97139; 99284; J0360; J0456; J0692; J0696; J1650; J1817; J2405; J7030; J7050; J7121